=== PATIENT | male | born 1985 | race Native Hawaiian/Other Pacific Islander ===

== ENCOUNTER 2016-11-27 16:03 | Outpatient (CLI) | payer OTHER ==
[2016-11-27 16:57] LABS: PLATELET COUNT 227 K/uL (142-355)
[2016-11-27 16:58] LABS: POTASSIUM 4.4 mmol/L (3.6-5.2); SODIUM 139 mmol/L (136-145)
== END 2016-11-27 17:10 | disposition home or self-care (01) ==
LOC: LABW 16:03
PROVIDERS: Specialist
DX: G40.309 Generalized idiopathic epilepsy and epileptic syndromes, not intractable, without status epilepticus (principal); I10 Essential (primary) hypertension
CPT/HCPCS: 36415; 80053; 80061; 80164; 85027; 85651; 86039

== ENCOUNTER 2018-06-13 10:19 | Emergency (ER) | payer OTHER ==
[~2018-06-13] VITALS: Ht 177.8 cm; Wt 77.1 kg
[2018-06-13 10:55] VITALS: TEMP 98
[2018-06-13 12:59] VITALS: BP 143/102
== END 2018-06-13 13:00 | disposition home or self-care (01) ==
LOC: ED 10:19
DX: S16.1XXA Strain of muscle, fascia and tendon at neck level, initial encounter (principal); X58.XXXA Exposure to other specified factors, initial encounter; Y92.89 Other specified places as the place of occurrence of the external cause
CPT/HCPCS: 96372; 99283; J1885

== ENCOUNTER 2019-01-09 19:36 | Emergency (ER) | payer OTHER ==
[~2019-01-09] VITALS: Ht 177.8 cm; Wt 90.7 kg
[2019-01-09 22:10] VITALS: BP 148/98; TEMP 98.8
== END 2019-01-09 22:14 | disposition home or self-care (01) ==
LOC: ED 19:36
PROC: 2W3LX1Z Immobilization of Right Lower Extremity using Splint (ICD-10-PCS; principal; 2019-01-09)
DX: S83.91XA Sprain of unspecified site of right knee, initial encounter (principal); S83.511A Sprain of anterior cruciate ligament of right knee, initial encounter; Y93.01 Activity, walking, marching and hiking
CPT/HCPCS: 96372; 99283; J1885; J2270

== ENCOUNTER 2019-08-19 20:42 | Emergency (ER) | payer OTHER ==
[~2019-08-19] VITALS: Ht 177.8 cm; Wt 99.8 kg
[2019-08-19 20:59] VITALS: BP 147/83; TEMP 98.2
[2019-08-19] MEDS ORDERED: AMLODIPINE BESYLATE PO (21:00)
[2019-08-19] MEDS ORDERED: LEXAPRO10 MG PO (21:00)
[2019-08-19] MEDS ORDERED: TIZA4TAB5 PO (21:00)
[2019-08-19] MEDS ORDERED: HYDROCHLOROT12.5 M1 PO (21:00)
== END 2019-08-19 21:57 | disposition home or self-care (01) ==
LOC: ED 20:42
DX: R00.2 Palpitations (principal); T42.8X5A Adverse effect of antiparkinsonism drugs and other central muscle-tone depressants, initial encounter
CPT/HCPCS: 80053; 82550; 82553; 84484; 85027; 99283

== ENCOUNTER 2020-05-25 16:53 | Emergency (ER) | payer OTHER ==
[~2020-05-25] VITALS: Ht 177.8 cm; Wt 99.8 kg
[~2020-05-25 16:53] MED LIST: AMLODIPINE BESYLATE PO; HYDROCHLOROT12.5 M1 PO; LEXAPRO10 MG PO; TIZA4TAB5 PO
[2020-05-25 17:03] VITALS: BP 171/100; TEMP 97.1
== END 2020-05-25 17:57 | disposition home or self-care (01) ==
LOC: ED 16:53
DX: F41.0 Panic disorder [episodic paroxysmal anxiety] (principal); U07.1 COVID-19
CPT/HCPCS: 87635; 99283; U0003

== ENCOUNTER 2023-01-24 08:25 | Emergency (ER) | payer OTHER ==
[~2023-01-24] VITALS: Ht 177.8 cm; Wt 74.8 kg
[2023-01-24 08:33] VITALS: TEMP 97.8
[2023-01-24 08:48] LABS: PLATELET COUNT 427 K/uL (142-355)
[2023-01-24 08:57] LABS: POTASSIUM 3.4 mmol/L (3.6-5.2)
[2023-01-24 09:22] VITALS: BP 160/85
== END 2023-01-24 09:22 | disposition home or self-care (01) ==
LOC: ED 08:25
PROVIDERS: Family Medicine
DX: R56.9 Unspecified convulsions (principal); I10 Essential (primary) hypertension; F41.9 Anxiety disorder, unspecified; Z87.891 Personal history of nicotine dependence
CPT/HCPCS: 80053; 80307; 81002; 85027; 99283